=== PATIENT | male | born 1945 | race Two or more races ===

== ENCOUNTER 2021-02-13 06:30 | Day surgery (SDC) | payer OTHER ==
[~2021-02-13 06:30] MED LIST: ATORVASTATIN CA10 MG PO; COZAAR25 MG PO; LIPITOR20 MG PO
[2021-02-13] MEDS ORDERED: PERCOCET 5-3251 EACH PO (12:32)
== END 2021-02-13 17:10 | disposition home or self-care (01) ==
LOC: CIR.AMB 06:30
PROVIDERS: ATTEND Surgery
DX: K64.4 Residual hemorrhoidal skin tags (principal); K64.8 Other hemorrhoids; Z20.822 Contact with and (suspected) exposure to COVID-19